=== PATIENT | male | born 1965 | race Caucasian/White ===

== ENCOUNTER 2021-11-28 19:40 | Emergency (ER) | payer BC ==
[~2021-11-28] VITALS: Ht 172.7 cm; Wt 74.0 kg
[2021-11-28] MEDS ORDERED: KETOROLAC 30MG/ML VIAL IV STA (20:22)
[2021-11-28] MEDS ORDERED: SODIUM CHLORIDE 0.9% 1,000 ML IV ONE (20:30)
[2021-11-28] MEDS ORDERED: PROCHLORPERAZINE 10MG/2ML VIAL IV ONE (20:30)
[2021-11-28] MEDS ORDERED: DIPHENHYDRAMINE 50MG/ML VIAL IV ONE (20:30)
[2021-11-28] MEDS ORDERED: METOCLOPRAMIDE HCL 10MG/2ML VIAL IV ONE (20:30)
[2021-11-28 21:02] LABS: BASOPHILS % 0.5 % (0.0-2.0); EOSINOPHILS % 0.9 % (0.0-5.0); HEMATOCRIT. 49.3 % (42.0-52.0); HEMOGLOBIN. 17.3 g/dL (14.0-18.0); LYMPHOCYTES % 11.3 % (20.0-50.0); MEAN CORPUSCULAR VOLUME 85.4 fL (80.0-94.0); MEAN PLATELET VOLUME 7.9 fl (7.4-10.4); MONOCYTES % 7.3 % (2.0-8.0); PLATELET 248 x1000/uL (130-400); RED BLOOD CELL COUNT 5.78 mill/uL (4.7-6.1); RED CELL DISTRIBUTION WIDTH 13.1 % (11.6-14.6)
[2021-11-28 21:09] LABS: CHLORIDE 98 mEq/L (98-107)
[2021-11-28 23:13] VITALS: BP 132/76
== END 2021-11-28 23:15 | disposition home or self-care (01) ==
LOC: ER 19:40
DX: G43.909 Migraine, unspecified, not intractable, without status migrainosus (principal)
CPT/HCPCS: 36415; 80053; 85025; 96361; 96374; 96375; 99284; J0780; J1200; J1885; J2765; J7030